=== PATIENT | female | born 2000 | race Hispanic/Latino ===

== ENCOUNTER 2022-10-11 16:23 | Emergency (ER) | payer SELFPAY ==
[~2022-10-11] VITALS: Ht 165.1 cm; Wt 63.0 kg
[2022-10-11] MEDS ORDERED: VALACYCLOVIR HCL1 GM PO (18:10)
[2022-10-11] MEDS ORDERED: PREDNISONE20 MG PO (18:10)
[2022-10-11 18:35] VITALS: BP 128/80
== END 2022-10-11 18:34 | disposition home or self-care (01) | DRG 74 ==
LOC: ED 16:23
DX: G51.0 Bell's palsy (principal)